=== PATIENT | male | born 1990 | race Caucasian/White ===

== ENCOUNTER 2018-01-10 03:22 | Emergency (ER) | payer BC ==
[2018-01-10] MEDS: IPRATROPIUM (NEB) 0.5 MG/2.5 ML AMP HHN (04:15)
[2018-01-10] MEDS: ALBUTEROL 0.083% (NEB) 2.5 MG/3 ML AMP HHN (04:15)
[2018-01-10] MEDS: LORAZEPAM 0.5 MG TAB PO (04:17)
== END 2018-01-10 06:19 | disposition home or self-care (01) ==
LOC: FTE 03:22
DX: R06.02 Shortness of breath (principal); F17.210 Nicotine dependence, cigarettes, uncomplicated
CPT/HCPCS: 71046; 94664; 99283-25